=== PATIENT | female | born 1960 | race Caucasian/White ===

== ENCOUNTER 2019-05-20 11:41 | Emergency (ER) | payer BC, OTHER ==
[2019-05-20 11:44] VITALS: BP 142/74
--- NOTE | 2019-05-20 11:59 | EDM.PDOC ---
ED HPI GENERAL MEDICAL PROBLEM - General Chief Complaint: General Stated Complaint: vertigo, headache, body aches Time Seen by Provider: 05/20/19 11:50 Source of Information: Reports: Patient, Old Records ([facility] chart/EMR) History Limitations: Reports: No Limitations - History of Present Illness INITIAL COMMENTS - FREE TEXT/NARRATIVE: The patient was brought to the emergency room via private automobile for evaluation of progressive 10/10 diffuse arthralgias, including in the lower back associated with some fever and chills, however the patient has not measured her temperature to this point. Symptoms have been refractory to OTC cold preparations with no recent antipyretic medications during the last 6 hours. Symptoms started at about p.m. on 04/17 with no known exposure to infection. She does have a history of chronic intermittent vertigo with vertigo type symptoms and mild bilateral otalgia and sore throat also present at this time. The patient denies any chest pain/pressure, heart flutter, orthostasis, orthopnea, diaphoresis, paresthesias, recent decreased exercise tolerance, or any other anginal-type symptoms. No recent history of abdominal pain, heartburn , nausea, diarrhea, melena, gross hematochezia, or any food intolerance, including fatty foods, etc.. She denies gross hematuria, colic, or other UTI symptoms. The patient also denies any recent wheezing, dyspnea, etc. with only mild intermittent nonproductive cough. No history of recent headaches, visual changes, diplopia, change in mental status, or other change in neurological status. Onset: Gradual Onset Date: 05/18/19 Onset Time: 18:00 Duration: Constant, Getting Worse Location: Reports: Generalized Quality: Reports: Ache, Same as Previous Episode Severity: Severe Improves with: Reports: None Worsens with: Reports: None Context: Reports: Other (As above). Denies: Sick Contact, Trauma Associated Symptoms: Reports: Cough, Fever/Chills. Denies: Confusion, Chest Pain, cough w sputum, Diaphoresis, Headaches, Malaise, Nausea/Vomiting, Rash, Seizure, Shortness of Breath, Syncope, Weakness Treatments DIRECTOR BIOINFORMATICS: Reports: Other Medication(s) (As above) Generalized Pain Score (Numeric/FACES): 10 - Related Data Allergies Allergy/AdvReac Type Severity Reaction Status Date / Time No Known Allergies Allergy Verified 05/20/19 11:42 Home Meds: Home Meds Multivitamin [Multivitamins] 1 each PO DAILY 02/08/16 [History] Calcium Carb/Vitamin D3/Vit K1 [Calcium + Vit D & K Chew] 1 tab PO DAILY [History] Meclizine [Antivert] 25 mg PO Q6H PRN #30 tab.chew 05/20/19 [Rx] Past Medical History HEENT History: Denies: Allergic Rhinitis, Cataract, Glaucoma, Hard of Hearing, Impaired Vision, Macular Degeneration, Otitis Media, Retinal Detachment Cardiovascular History: Denies: Afib, Aneurysm, Arrhythmia, Blood Clots/VTE/DVT , CAD, Heart Murmur, High Cholesterol, Hypertension, [place], PTCA, PVD, Syncope Respiratory History: Reports: Intubation, Previous. Denies: Asthma, Bronchitis , Recurrent, COPD, Intubation, Difficult, PE, Pneumonia, Recurrent, Pneumothorax , Sleep Apnea, TB Gastrointestinal History: Reports: Cholelithiasis, GERD, Other (See Below). Denies: Celiac Disease, Chronic Constipation, Chronic Diarrhea, Fecal Incontinence, Gastritis, GI Bleed, Hepatitis, Inflammatory Bowel Disease, Irritable Bowel Syndrome, Jaundice, Pancreatitis, PUD Other Gastrointestinal History: GERD mostly with pregnancies. Nonsymptomatic cholelithiasis. Genitourinary History: Reports: None. Denies: Acute Renal Failure, Chronic Renal Insuffiency, Renal Calculus, Retention, Urinary, STD, Urinary Incontinence , UTI, Recurrent FEATHER SAWYER History: Reports: . Denies: Dysfunctional Uterine Bleeding, Endometriosis, Fibroids, Spontaneous : 3 Para: 3 LMP (Approximate): Other (See Below) Other FEATHER SAWYER History: Menopause at age 50. Initial required secondary to position with subsequent additional C-sections 2 and otherwise full term pregnancies without complications during pregnancies or deliveries. Musculoskeletal History: Reports: Arthritis, Osteoarthritis, Other (See Below). Denies: Amputation, Back Pain, Chronic, Fracture, Gout, Neck Pain, Chronic, RA , SLE Other Musculoskeletal History: Bilateral calcaneal spurs. Left knee lateral meniscal tear in June 2018 requiring surgery as below. Neurological History: Reports: Headaches, Chronic, Migraines, Vertigo. Denies: Alzheimers Disease, Cerebral Aneurysms, Concussion, CVA, Head Trauma, MS, Neuropathy, Peripheral, Parkinson's, Seizure, TIA Psychiatric History: Reports: None. Denies: Abuse, Victim of, ADD, ADHD, Addiction, Anxiety, Depression, Psych Hospitalization(s), PTSD, Suicide Attempt , Suicidal Ideation Endocrine/Metabolic History: Denies: Diabetes, Type I, Diabetes, Type II, Hypothyroidism, IDDM Hematologic History: Reports: None. Denies: Anemia, Blood Transfusion(s), Iron Deficiency Immunologic History: Reports: None. Denies: AIDS, HIV, SLE Oncologic (Cancer) History: Reports: None. Denies: Basal Cell Carcinoma, Breast , Cervix, Colon, Hodgkin's Lymphoma, Leukemia, Lymphoma, Malignant Melanoma, Non -Hodgkin's Lymphoma, Ovarian, Squamous Cell Carcinoma, Uterine Dermatologic History: Reports: None. Denies: Eczema, Psoriasis - Infectious Disease History Infectious Disease History: Reports: Chicken Pox, Mumps. Denies: C-Difficile, Measles, Meningitis, Mononucleosis, MRSA, Pertussis (Whooping Cough), Rheumatic Fever, Rubella, Scarlet Fever, Shingles, TB, VRE - Past Surgical History Head Surgeries/Procedures: Reports: None HEENT Surgical History: Reports: Adenoidectomy, Oral Surgery, Tonsillectomy, Other (See Below). Denies: Eye Surgery, Laser Surgery, LASIK, Myringotomy w Tube(s), Naso-Sinus Surgery Other HEENT Surgeries/Procedures: Tonsillectomy and adenoidectomy at about age 6. Multiple teeth extractions. Cardiovascular Surgical History: Reports: None. Denies: Varicose Respiratory Surgical History: Reports: None. Denies: Thoracentesis GI Surgical History: Reports: None. Denies: Appendectomy, Cholecystectomy, Colonoscopy, EGD, Hernia, Abdominal, Hernia, Inguinal, Hernia Repair/Other Female Surgical History: Reports: Section, Other (See Below). Denies: Breast Biopsy, D&C, Hysterectomy, Lithotripsy/ESWL, Oophorectomy, Tubal Ligation Other Female Surgeries/Procedures: C-sections 3 as above. Endocrine Surgical History: Reports: None. Denies: Thyroid Biopsy Neurological Surgical History: Reports: None. Denies: C-Spine, Discectomy, Laminectomy, Lumbar Spine, Sacral Spine, Scoliosis, Spinal Fusion, Thoracic Spine Musculoskeletal Surgical History: Reports: Arthroscopic Knee, Arthroscopic Procedure, Other (See Below). Denies: Carpal Tunnel, Ganglion Cyst, Joint Replacement, ORIF, Shoulder Surgery Other Musculoskeletal Surgeries/Procedures:: Arthroscopic left knee lateral meniscal repair in July 2018. Oncologic Surgical History: Reports: None Dermatological Surgical History: Reports: None - Past Imaging History Past Imaging History: Reports: Mammogram (Last mammogram on 12/11/15.), MRI ( Left knee on 07/17/18.), Ultrasound (Ultrasound of the chest and right clavicular regionsoft tissue on 05/07/15. Gallbladder ultrasound on 03/23/06.), Venous Doppler (Right leg on 03/01/16 and 06/05/13.) Social & Family History - Tobacco Use Smoking Status *Q: Never Smoker Tobacco Use Within Last Twelve Months: No Used Tobacco, but Quit: No Smoking Cessation Information Provided To Patient: No Second Hand Smoke Exposure: No Second Hand Smoke Education Provided: No - Caffeine Use Caffeine Use: Reports: Coffee (4 cups per day), Soda (1 soda per day). Denies: Energy Drinks, Tea - Alcohol Use Alcohol Use History: Yes Days Per Week of Alcohol Use: 0 Number of Drinks Per Day: 0 Number of Drinks Per Day Comment: No previous DWIs, problems with alcohol abuse , etc. Total Drinks Per Week: 0 Alcohol Use in Last Twelve Months: No - Recreational Drug Use Recreational Drug Use: No Drug Use in Last 12 Months: No Recreational Drug Type: Denies: Amphetamines (Speed), Cocaine, Heroin, Inhalants (Glues, Solvents, Aerosols), LSD (Acid), Marijuana/Hashish, Methamphetamine, Morphine, Oxycodone - Sexual History Sexual History: Reports: Sexually Active, Single Partner - Living Situation & Occupation Living situation: Reports: (1997, 3 children), with Family () Occupation: Employed ([employer]) ED ROS GENERAL - Review of Systems Review Of Systems: ROS reveals no pertinent complaints other than HPI. ED EXAM, GENERAL - Physical Exam Exam: See Below Exam Limited By: No Limitations General Appearance: Alert, WD/WN, No Apparent Distress Eye Exam: Bilateral Eye: EOMI, Normal Inspection (No nystagmus with some mild vertigo with head movement), PERRL Ears: Normal External Exam, Normal Canal, Hearing Grossly Normal, Normal TMs Nose: Normal Mucosa, No Blood, Clear Rhinorrhea Throat/Mouth: Normal Inspection, Normal Lips, Normal Teeth, Normal Gums, Normal Oropharynx, Normal Voice, No Airway Compromise. No: Dysphagia, Perioral Cyanosis Head: Atraumatic, Normocephalic. No: Facial Swelling, Facial Tenderness, Sinus Tenderness Neck: Normal Inspection, Supple, Non-Tender, Full Range of Motion, Other ( Negative meningeal signs). No: Lymphadenopathy (L), Lymphadenopathy (R), Thyromegaly Respiratory/Chest: No Respiratory Distress, Lungs Clear, Normal Breath Sounds, No Accessory Muscle Use, Chest Non-Tender. No: Pleural Rub, Retractions Cardiovascular: Normal Peripheral Pulses, Regular Rate, Rhythm, No Edema, No Gallop, No JVD, No Murmur, No Rub. No: Gallop/S3, Gallop/S4, Friction Rub Peripheral Pulses: 2+: Radial (L), Radial (R), Dorsalis Pedis (L), Dorsalis Pedis (R) GI/Abdominal: Normal Bowel Sounds, Soft, Non-Tender, No Organomegaly, No Distention, No Abnormal Bruit, No Mass. No: Guarding (Female) Exam: Deferred Rectal (Female) Exam: Deferred Back Exam: Normal Inspection, Full Range of Motion. No: CVA Tenderness (L), CVA Tenderness (R), Muscle Spasm Extremities: Normal Inspection, Normal Range of Motion, Non-Tender, No Pedal Edema, Normal Capillary Refill. No: Dex's Sign Neurological: Alert, Oriented, CN II-XII Intact, Normal Cognition, Normal Gait, Normal Reflexes (Negative Babinski's), No Motor/Sensory Deficits Psychiatric: Normal Affect, Normal Mood Skin Exam: Warm, Dry, Intact, Normal Color, No Rash. No: Diaphoretic, Wound/ Incision Lymphatic: No Adenopathy Course - Vital Signs Last Recorded V/S: Last Vital Signs Temp 36.8 C 05/20/19 11:43 Pulse 60 05/20/19 11:43 Resp 16 05/20/19 11:43 BP 142/74 H 05/20/19 11:43 Pulse Ox 99 05/20/19 11:43 Vital Signs - 24 hr 05/20/19 11:43 Temperature [ 36.8 C Oral] Pulse, 60 Peripheral [ Left Pulse Oximetry] Respiratory 16 Rate Blood Pressure 142/74 H [Left Upper Arm ] O2 Sat by Pulse 99 Oximetry - Orders/Labs/Meds Orders: Active Orders 24 hr Category Date Time Status CULTURE STREP A CONFIRMATION [] Stat Lab 05/20/19 12:00 Results STREP SCRN A RAPID W CULT CONF [RM] Stat Lab 05/20/19 11:59 Ordered Obtain Past Medical Record [OM.PC] Routine Oth 05/20/19 11:59 Active Labs: Microbiology 05/20/19 12:00 Influenza Type A Antigen Screen - Final Nasal, Left NEGATIVE INFLUENZA A VIRUS AG REFERENCE RANGE: NEGATIVE Influenza Type B Antigen Screen - Final NEGATIVE INFLUENZA B VIRUS AG REFERENCE RANGE: NEGATIVE 05/20/19 12:00 Group A Streptococcus Rapid Screen - Final Throat NEGATIVE STREP A SCREEN REFERENCE RANGE: NEGATIVE Meds: None - Radiology Interpretation Free Text/Narrative:: None Departure - Departure Time of Disposition: 12:40 Disposition: Home, Self-Care 01 Clinical Impression: URI, acute, Vertigo, Peptic reflux disease, Osteoarthritis - Discharge Information *PRESCRIPTION DRUG MONITORING PROGRAM REVIEWED*: Not Applicable *COPY OF PRESCRIPTION DRUG MONITORING REPORT IN PATIENT BRANDON: Not Applicable Prescriptions: Meclizine [Antivert] 25 mg PO Q6H PRN #30 tab.chew PRN Reason: Dizziness Instructions: Vertigo, [id number], Upper Respiratory Infection, Adult, Easy- to-Read Referrals: Silva Mesa NP [Primary Care Provider] - Forms: ED Department Discharge Additional Instructions: 1. Follow up with your regular provider in 10-14 days as needed, if symptoms persist. Bring these discharge instructions with you to that visit.. 2. Tylenol 650 mg by mouth every 4 hours and/or OTC ibuprofen 2-3 tabs by mouth every 6 hours with food as directed./needed. You may stagger these medications for 48-72 hours only, which essentially means that you are receiving a pain medication about every 2 hours. 3. Hygiene precautions as discussed 4. Sedation precautions with meclizine as discussed 5. Immediately after this visit verify that your cellular telephone's voicemail has been activated and is empty. Also verify that your home telephone 's answering machine is operating properly and has space to receive messages. Note that it is sometimes necessary for us to be able to contact you at a later date to discuss your medical care. 6. Please remember that we are ALWAYS here for you and want to answer any questions you may have. Feel free to call the hospital any time and we call you back NANCY. 7. Listerine gargles four times per day, after meals and at bedtime, with additional Chloroseptic lozenges or spray as needed for 10 days and/or until symptoms resolve. 8. Update your routine preventive health care with your regular provider NANCY including recommended repeat mammogram, initial colonoscopy, etc. as discussed. 9. Yearly influenza boosters as recommended. - Problem List & Annotations (1) URI, acute SNOMED Code(s): 11599163 Code(s): J06.9 - ACUTE UPPER RESPIRATORY INFECTION, UNSPECIFIED Status: Acute Priority: High Onset Date: ~05/18/19 Annotation/Comment:: Mild URI with secondary probable viral bronchitis, labyrinthitis, and pharyngitis with negative strep screen and influenza screen. Yearly influenza screens recommended with patient not having an influenza booster this season. She does not need a work excuse. The patient did not wish to have a Depo-Medrol injection. Symptomatic relief with OTC meclizine, etc. with sedation precautions , etc. discussed. (2) Vertigo SNOMED Code(s): 710865386 Code(s): R42 - DIZZINESS AND GIDDINESS Status: Acute Priority: High Annotation/Comment:: History of chronic vertigo as above with exacerbation by current labyrinthitis. (3) Peptic reflux disease SNOMED Code(s): 653682189 Code(s): K21.9 - GASTRO-ESOPHAGEAL REFLUX DISEASE WITHOUT ESOPHAGITIS Status: Chronic Priority: Medium Annotation/Comment:: Stable by history not currently requiring medical therapy. (4) Osteoarthritis SNOMED Code(s): 143513083 Code(s): M19.90 - UNSPECIFIED OSTEOARTHRITIS, UNSPECIFIED SITE Status: Chronic Priority: Medium Annotation/Comment:: Stable by history with generalized arthralgias today secondary to current infection. Qualifiers: Osteoarthritis location: multiple joints Osteoarthritis type: primary Qualified Code(s): M15.0 - Primary generalized (osteo)arthritis - Problem List Review Problem List Initiated/Reviewed/Updated: Yes - My Orders Last 24 Hours: My Active Orders 05/20/19 11:59 STREP SCRN A RAPID W CULT CONF [RM] Stat Obtain Past Medical Record [OM.PC] Routine 05/20/19 12:00 CULTURE STREP A CONFIRMATION [RM] Stat - Assessment/Plan Last 24 Hours: My Active Orders 05/20/19 11:59 STREP SCRN A RAPID W CULT CONF [RM] Stat Obtain Past Medical Record [OM.] Routine 05/20/19 12:00 CULTURE STREP A CONFIRMATION [RM] Stat Assessment:: As above Plan: As above. Extensive precautions were given to the patient, who is in agreement with the treatment plan. See Patient Instructions for further treatment and plan.
== END 2019-05-20 12:40 | disposition home or self-care (01) ==
LOC: LL.ED 11:41
DX: J06.9 Acute upper respiratory infection, unspecified (principal); R42 Dizziness and giddiness; K21.9 Gastro-esophageal reflux disease without esophagitis; M19.90 Unspecified osteoarthritis, unspecified site; Z79.899 Other long term (current) drug therapy
CPT/HCPCS: 87081; 87430; 87804; 99284

== ENCOUNTER → 2022-09-05 | Emergency (ER) | payer BC | LOC: LL.ED 21:00 | DX: S40.011A Contusion of right shoulder, initial encounter (principal); W10.9XXA Fall (on) (from) unspecified stairs and steps, initial encounter | CPT/HCPCS: 73060-RT; 99283 ==

== ENCOUNTER 2024-04-18 16:45 | Emergency (ER) | payer BC ==
[2024-04-18] MEDS ORDERED: Sodium Chloride 0.9% 10 ML Syringe FLUSH PRN (16:49)
[2024-04-18] MEDS ORDERED: LORazepam 2 MG/ML SDV IVPUSH ONE (16:50)
[2024-04-18 16:56] LABS: BASOPHILS ABSOLUTE AUTO 0.03 K/uL (0.00-0.20); BASOPHILS PERCENT AUTO 0.5 % (0.0-2.0); EOSINOPHILS ABSOLUTE AUTO 0.07 K/uL (0.00-0.50); EOSINOPHILS PERCENT AUTO 1.1 % (0.0-5.0); HEMATOCRIT 44.7 % (34.0-46.0); HEMOGLOBIN 15.3 g/dL (11.7-15.5); LYMPHOCYTES ABSOLUTE AUTO 2.17 K/uL (0.50-3.50); LYMPHOCYTES PERCENT AUTO 32.6 % (10.0-50.0); MEAN CORPUSCULAR HGB CONC 34.2 g/dL (31.7-36.0); MEAN CORPUSCULAR VOLUME 90.5 fL (84.0-98.0); MONOCYTES ABSOLUTE AUTO 0.53 K/uL (0.00-1.00); NEUTROPHILS ABSOLUTE AUTO 3.85 K/uL (1.40-7.00); NEUTROPHILS PERCENT AUTO 57.8 % (45.0-80.0); PLATELET COUNT,PLT 263 K/uL (150-350); RED BLOOD CELL COUNT 4.94 M/uL (3.77-5.09); WHITE BLOOD CELL COUNT,WBC 6.7 K/uL (4.0-10.2)
[2024-04-18 17:06] LABS: INR 0.9 (0.9-1.1); PROTHROMBIN TIME 9.3 SEC (9.0-11.1)
[2024-04-18 17:14] LABS: ALANINE AMINOTRANSFERASE,ALT 26 U/L (12-78); ALBUMIN 3.6 g/dL (3.4-5.0); ALKALINE PHOSPHATASE 174 IU/L (46-116); ASPARTATE AMNIOTRANSFERASE,AST 26 U/L (15-37); BILIRUBIN TOTAL 0.5 mg/dL (0.2-1.0); BLOOD UREA NITROGEN,BUN 12 mg/dL (7-18); CALCIUM 8.9 mg/dL (8.5-10.1); CHLORIDE,CL 103 mmol/L (98-107); CREATININE 0.71 mg/dL (0.51-1.17); GLUCOSE RANDOM 95 mg/dL (70-99); MAGNESIUM 2.1 mg/dL (1.8-2.4); POTASSIUM,K 3.9 mmol/L (3.5-5.1); PRO B-TYPE NATRIUR PEPT,BNPPRO 101 pg/mL (0-125); PROTEIN TOTAL,TP 7.2 g/dL (6.4-8.2); SODIUM,NA 140 mmol/L (136-145)
[2024-04-18 17:16] LABS: ESTIMATED GFR 95 mL/min (>=60)
[2024-04-18] MEDS: LORazepam 2 MG/ML SDV IVPUSH PRN (18:16)
[2024-04-18] MEDS: cloNIDine 0.1 MG Tab PO ONE (18:53)
[2024-04-18 19:10] VITALS: BP 160/86; PULSE 70
== END 2024-04-18 19:25 | disposition home or self-care (01) ==
LOC: LL.ED 16:45
DX: F41.9 Anxiety disorder, unspecified (principal); R03.0 Elevated blood-pressure reading, without diagnosis of hypertension; K21.9 Gastro-esophageal reflux disease without esophagitis; Z79.899 Other long term (current) drug therapy
CPT/HCPCS: 36415; 71045; 80053; 83735; 83880; 84484; 85025; 85610; 93005; 96374; 99284-25; A9270-GY; J2060

== ENCOUNTER 2024-04-20 16:23 | Emergency (ER) | payer BC ==
[2024-04-20 17:04] LABS: BASOPHILS ABSOLUTE AUTO 0.04 K/uL (0.00-0.20); BASOPHILS PERCENT AUTO 0.7 % (0.0-2.0); EOSINOPHILS ABSOLUTE AUTO 0.09 K/uL (0.00-0.50); EOSINOPHILS PERCENT AUTO 1.7 % (0.0-5.0); HEMATOCRIT 43.2 % (34.0-46.0); HEMOGLOBIN 14.3 g/dL (11.7-15.5); LYMPHOCYTES ABSOLUTE AUTO 1.85 K/uL (0.50-3.50); LYMPHOCYTES PERCENT AUTO 34.1 % (10.0-50.0); MEAN CORPUSCULAR HEMOGLOBIN 30.6 pg (28.2-33.3); MEAN CORPUSCULAR HGB CONC 33.1 g/dL (31.7-36.0); MEAN CORPUSCULAR VOLUME 92.5 fL (84.0-98.0); MONOCYTES ABSOLUTE AUTO 0.38 K/uL (0.00-1.00); NEUTROPHILS ABSOLUTE AUTO 3.07 K/uL (1.40-7.00); NEUTROPHILS PERCENT AUTO 56.5 % (45.0-80.0); PLATELET COUNT,PLT 214 K/uL (150-350); RED BLOOD CELL COUNT 4.67 M/uL (3.77-5.09); RED CELL DISTRIBUTION WIDTH 11.9 % (11.2-14.1); WHITE BLOOD CELL COUNT,WBC 5.4 K/uL (4.0-10.2)
[2024-04-20 17:13] LABS: ANION GAP 7.9 meq/L (7-15); CALCIUM 8.6 mg/dL (8.5-10.1); CARBON DIOXIDE,CO2 27.1 mmol/L (21.0-32.0); CREATININE 0.68 mg/dL (0.51-1.17); EST CRCL DRUG DOSING (CG) 70.05 mL/min; POTASSIUM,K 4.2 mmol/L (3.5-5.1)
[2024-04-20] MEDS: predniSONE 20 MG Tab PO ONE (17:38)
[2024-04-20] MEDS: diphenhydrAMINE 25 MG Cap PO ONE (17:38)
[2024-04-20 17:56] VITALS: BP 127/75; PULSE 62
== END 2024-04-20 18:00 | disposition home or self-care (01) ==
LOC: LL.ED 16:23
DX: I80.8 Phlebitis and thrombophlebitis of other sites (principal); I10 Essential (primary) hypertension; Z79.899 Other long term (current) drug therapy
CPT/HCPCS: 36415; 80048; 85025; 99283; A9270-GY; J7512